=== PATIENT | male | born 1960 | race African-American/Black ===

== ENCOUNTER 2023-04-14 07:37 | Day surgery (SDC) | payer OTHER ==
[2023-04-13 14:15] VITALS: BMI 30.2
[2023-04-14] MEDS ORDERED: PROPOFOL 160 ML ONE (08:34)
[2023-04-14 09:36] VITALS: TEMP 97.5
[2023-04-14 09:41] VITALS: BP 114/51; PULSE 66; RESP 19
== END 2023-04-14 09:55 | disposition home or self-care (01) ==
LOC: FASU-ENDO 07:37
PROVIDERS: ATTEND Internal Medicine Gastroenterology
PROC: 0DJD8ZZ Inspection of Lower Intestinal Tract, Via Natural or Artificial Opening Endoscopic (ICD-10-PCS; principal; 2023-04-14 08:53)
DX: Z12.11 Encounter for screening for malignant neoplasm of colon (principal); K57.30 Diverticulosis of large intestine without perforation or abscess without bleeding
CPT/HCPCS: 82962